=== PATIENT | female | born 1995 | race Caucasian/White ===

== ENCOUNTER 2020-07-19 20:53 | Inpatient (IN) ==
[2020-07-19] MEDS ORDERED: ONDANSETRON 4 MG/2 ML VIAL IV PRN (23:14)
[2020-07-19] MEDS ORDERED: LACTATED RINGERS 250 ML IV ONE (23:14)
[2020-07-19] MEDS ORDERED: LACTATED RINGERS 500 ML IV PRN (23:14)
[2020-07-19] MEDS ORDERED: LACTATED RINGERS 1,000 ML IV SCH (23:30)
[2020-07-19 23:45] LABS: Basophils % 0.2 % (0.0-0.8); Eosinophils # 0.1 10*3/uL (0.0-0.87); Eosinophils % 0.9 % (0.00-10.9); Hematocrit 34.4 VOL% (35.7-47.0); Hemoglobin 11.6 GM/DL (12.0-16.0); Immature Granulocytes % 0.2 %; Immature Granulocytes Absolute 0.02 #; Lymphocytes # 2.4 10*3/uL (1.4-4.0); Lymphocytes % 30.1 % (21.3-54.2); Mean Corpuscular HGB Conc 33.7 GM/DL (32-36); Mean Corpuscular Volume 87.5 FL (87-102); Mean Platelet Volume 10.8 FL (9.6-12.0); Monocytes % 7.5 % (1.7-12.7); Neutrophils % 61.1 % (38.7-73.9); Platelet Count 274 T/CUMM (130-400); Red Blood Count 3.93 MC/CUMM (3.8-5.5); Red Cell Distribution Width 12.5 % (9.3-17.3)
[2020-07-20] MEDS ORDERED: MEPERIDINE 50 MG/1 ML VIAL IV ONE ×2 (05:01→07:52)
[2020-07-20] MEDS ORDERED: CITRIC ACID/SODIUM CITRATE 30 ML UDCUP PO ONE (05:42)
[2020-07-20] MEDS ORDERED: FAMOTIDINE 20 MG/2 ML VIAL IV ONE ×2 (05:42→05:46)
[2020-07-20] MEDS ORDERED: hydrOXYzine HCL 25 MG/1 ML VIAL IM PRN (05:42)
[2020-07-20] MEDS ORDERED: ePHEDrine 50 MG/ML VIAL IV PRN (05:42)
[2020-07-20] MEDS ORDERED: ONDANSETRON 4 MG/2 ML VIAL IV ONE (05:42)
[2020-07-20] MEDS ORDERED: diphenhydrAMINE 50 MG/1 ML VIAL IV PRN ×2 (05:42)
[2020-07-20] MEDS ORDERED: NALOXONE 0.4 MG/ML VIAL IV PRN (05:42)
[2020-07-20] MEDS ORDERED: PROMETHAZINE 25 MG/1 ML VIAL IM ONE (05:42)
[2020-07-20] MEDS ORDERED: TERBUTALINE 1 MG/1 ML VIAL ONE (05:43)
[2020-07-20] MEDS ORDERED: CITRIC ACID/SODIUM CITRATE 30 ML UDCUP ONE (05:45)
[2020-07-20] MEDS ORDERED: ePHEDrine 50 MG/ML VIAL ONE (05:46)
[2020-07-20] MEDS ORDERED: TERBUTALINE 1 MG/1 ML VIAL SUBCUT ONE (05:46)
[2020-07-20] MEDS ORDERED: fentaNYL 2 MCG/ROPIV 0.2% EPID 100 ML EPIDURAL SCH (06:00)
[2020-07-20] MEDS ORDERED: METHYLERGONOVINE 0.2 MG/1 ML AMP ONE (06:16)
[2020-07-20] MEDS ORDERED: OXYTOCIN/LR 20 UNIT/1,000 ML BAG IV ONE ×3 (06:16→08:13)
[2020-07-20] MEDS ORDERED: miSOPROStoL 200 MCG TABLET ONE (06:16)
[2020-07-20] MEDS ORDERED: TRANEXAMIC ACID 1,000 MG/10 ML VIAL ONE (06:16)
[2020-07-20] MEDS ORDERED: CARBOPROST TROMETHAMINE 250 MCG/ML AMP IM ONE (06:16)
[2020-07-20] MEDS ORDERED: SODIUM CHLORIDE 0.9% 100 ML IV ONE (06:17)
[2020-07-20] MEDS ORDERED: LIDOCAINE 1% 50 ML VIAL ONE (06:17)
[2020-07-20 07:56] LABS: Cord Venous Blood HCO3 20.4 MMOL/L; Cord Venous Blood PCO2 36.2 MMHG; Cord Venous Blood PO2 36.3
[2020-07-20] MEDS ORDERED: HYDROCORTISONE 2.5% RECTAL CREAM 30 GM TUBE TOP PRN (08:13)
[2020-07-20] MEDS ORDERED: LANOLIN 50% CREAM 0.3 OZ TUBE TOP PRN (08:13)
[2020-07-20] MEDS ORDERED: RHO(D) IMMUNE GLOBULIN 300 MCG SYRINGE IM ONE (08:13)
[2020-07-20] MEDS ORDERED: MEASLES/MUMPS/RUBELLA VACCINE 0.5 ML VIAL SUBCUT ONE (08:13)
[2020-07-20] MEDS ORDERED: DIPH/TET/ACEL PERT BOOSTER VACCINE 0.5 ML VIAL IM ONE (08:13)
[2020-07-20] MEDS ORDERED: oxyCODONE/ACETAMINOPHEN 5-325 MG TABLET PO PRN (08:13)
[2020-07-20] MEDS ORDERED: BISACODYL 10 MG SUPP RECTAL PRN (08:13)
[2020-07-20] MEDS ORDERED: ONDANSETRON 4 MG/2 ML VIAL IV PRN (08:13)
[2020-07-20] MEDS ORDERED: BENZOCAINE 20%/MENTHOL 0.5% SPRAY 56 GM CAN TOP PRN (08:13)
[2020-07-20] MEDS ORDERED: WITCH HAZEL PADS 100/JAR TOP PRN (08:13)
[2020-07-20] MEDS ORDERED: ACETAMINOPHEN 325 MG TABLET PO PRN (08:13)
[2020-07-20] MEDS: IBUPROFEN 800 MG TABLET PO PRN (16:20)
[2020-07-20] MEDS: DOCUSATE SODIUM 100 MG CAPSULE PO SCH ×2 (16:50→21:03)
[2020-07-20] MEDS: oxyCODONE/ACETAMINOPHEN 5-325 MG TABLET PO PRN (22:20)
[2020-07-21] MEDS: oxyCODONE/ACETAMINOPHEN 5-325 MG TABLET PO PRN (05:17)
[2020-07-21 06:18] LABS: Basophils % 0.2 % (0.0-0.8); Eosinophils # 0.1 10*3/uL (0.0-0.87); Eosinophils % 0.7 % (0.00-10.9); Hematocrit 26.5 VOL% (35.7-47.0); Immature Granulocytes % 0.4 %; Immature Granulocytes Absolute 0.03 #; Lymphocytes # 1.6 10*3/uL (1.4-4.0); Lymphocytes % 19.8 % (21.3-54.2); Mean Corpuscular Volume 89.2 FL (87-102); Mean Platelet Volume 10.4 FL (9.6-12.0); Monocytes % 6.8 % (1.7-12.7); Neutrophils % 72.1 % (38.7-73.9); Platelet Count 188 T/CUMM (130-400); Red Blood Count 2.97 MC/CUMM (3.8-5.5); Red Cell Distribution Width 12.9 % (9.3-17.3); White Blood Count 8.1 T/CUMM (4-12)
[2020-07-21] MEDS: DOCUSATE SODIUM 100 MG CAPSULE PO SCH ×2 (10:08→21:18)
[2020-07-21] MEDS: IBUPROFEN 800 MG TABLET PO PRN (16:30)
[2020-07-22] MEDS: IBUPROFEN 800 MG TABLET PO PRN (02:12)
[2020-07-22 07:18] VITALS: BP 104/66
[2020-07-22] MEDS: DOCUSATE SODIUM 100 MG CAPSULE PO SCH (10:21)
== END 2020-07-22 11:45 | disposition home or self-care (01) | DRG 768 ==
LOC: N.LDOUT 20:53 → N.LD 22:46 → N.OB 07-20 11:14
PROVIDERS: ADMIT Specialist; ATTEND Specialist